=== PATIENT | male | born 1995 | race Asian ===

== ENCOUNTER 2018-04-22 01:15 | Emergency (ER) | payer MEDICAID ==
[2018-04-22 01:25] VITALS: BP 114/69
--- NOTE | 2018-04-22 01:41 | EDPHY ---
General Time Seen by Provider: 04/22/18 01:37 Narrative: CHIEF COMPLAINT: I cut my finger HISTORY OF PRESENT ILLNESS: Patient presents with complaints of I cut my finger. He accidentally cut the left index finger tip with a kitchen knife tonight at 8:00 p.m.. He says he was able to stop the bleeding with a Band-Aid 1st. Then it started bleeding again at 1:00 a.m.. He is clean the wound. He has moderate pain when he touches it. Minimal at rest. Does not radiate. No difficulty been or straightening the finger. It does involve the nail. No injury elsewhere. Tetanus up-to-date less than 5 years ago. Right-hand dominant. No other associated complaints or modifying factors TIME OF INJURY: 8:00 p.m. Tonight TETANUS STATUS: Less than 5 years MEDICAL/SURGICAL/SOCIAL HISTORY: Uncomplicated. [employer] student. Originally from [place] RE[facility] OF SYSTEMS: Ten systems reviewed and are negative unless otherwise noted in the HPI EXAMINATION General Appearance: Alert, no distress Head: normocephalic, atraumatic Cardiovascular: Symmetric radial pulses 2+. There is brisk cap refill in the fingers left hand. Neurological: A&O, 2 point sensory symmetric, interossei strength symmetric Skin: Warm and dry, no rash. There is a 1.5 x 1 cm area of tissue avulsion on the left finger tip, radial side involving the nail. No involvement of the nail bed. There is no exposure of the deep tissue structures. No foreign body. No pulsatile bleeding. Extremities: Tender left index finger laceration/avulsion. Full range of motion including superficialis and profundus flexors. DIFFERENTIAL DIAGNOSES: Including but not limited to laceration, avulsion, finger tip avulsion, laceration with tendon injury, laceration with nail injury MDM: 1:30 a.m. Finger tip laceration on the left index finger with involvement of the nail. There is mild venous bleeding noted. There is no pulsatile bleeding. He has full range of motion of the finger. I will administer digital block. He will need irrigation, surgery foam and tube gauze. We discussed ED precautions. We discussed ibuprofen 600 mg [id number]. We discussed rest, ice and elevation. We discussed removing the dressing in 48 hr. We discussed returning here for any signs of infection. He is comfortable this plan. PROCEDURE: Digital Block Indication: Finger laceration Consent: Verbal Location: Left index finger Anesthesia: Lidocaine 1% plain, 0.25% Marcaine plain, 5mL Description: Base of the finger was prepped. The above was infused without difficulty. Tolerated well. Good anesthesia. Complications: None SUPERVISION: This patient was independently evaluated without direct involvement of or examination by the attending physician. ED Precautions: Worsening pain. Erythema, edema, cyanosis, pallor, paresthesia or anesthesia. - History Smoking Status: Never smoked - Objective Vital Signs: Initial Vital Signs Temperature (C) 99.1 F 04/22/18 01:23 Heart Rate 76 04/22/18 01:23 Respiratory Rate 16 04/22/18 01:23 Blood Pressure 114/69 04/22/18 01:23 O2 Sat (%) 95 04/22/18 01:23 O2 Delivery Mode Room Air Allergies/Adverse Reactions: No Known Allergies Allergy (Unverified 04/22/18 01:25) Home Medications: Medication Instructions Recorded NK [No Known Home Meds] 04/22/18 Departure - Departure Disposition: Home, Routine, Self-Care Clinical Impression: Avulsion, finger tip Qualifiers: Encounter type: initial encounter Qualified Code(s): S61.209A - Unspecified open wound of unspecified finger without damage to nail, initial encounter Condition: Good Instructions: Skin Avulsion (ED) Additional Instructions: 1. Keep your dressing in place for 48 hr. 2. Daily wound care with bacitracin and simple bandage 3. Return to emergency department for any redness, warmth or signs of infection as discussed 4. Ice and elevate the extremity for the next 1 day as needed 5. Ibuprofen 600 mg every 8 hr as needed for pain Referrals: Physician,Emergency Dept, [Medical Doctor] - As per Instructions Hero Lyles MD [Medical Doctor] - As per Instructions
== END 2018-04-22 01:55 | disposition home or self-care (01) ==
PROC: 3E0T3BZ Introduction of Anesthetic Agent into Peripheral Nerves and Plexi, Percutaneous Approach (ICD-10-PCS; principal; 2018-04-22)
DX: S61.318A Laceration without foreign body of other finger with damage to nail, initial encounter (principal); W26.0XXA Contact with knife, initial encounter; Y92.000 Kitchen of unspecified non-institutional (private) residence as the place of occurrence of the external cause